=== PATIENT | male | born 1970 | race Caucasian/White ===

== ENCOUNTER 2019-08-28 07:18 | Emergency (ER) | payer OTHER, MEDICAID, SELFPAY ==
[2019-08-28 07:28] VITALS: BP 154/97; PULSE 113; RESP 15; TEMP 37.3; O2SAT 97; BMI 29.5
--- NOTE | 2019-08-28 07:44 | DI.RAD.S_ITS ---
PROCEDURE: XR ANKLE RT MIN 3V INDICATIONS: swelling and pain TECHNIQUE: 3 views of the ankle were acquired. COMPARISON: None. FINDINGS: Bones: No fractures or dislocations. Ankle mortise is normally aligned. No suspicious bony lesions. A plantar calcaneal spur is seen. The talar dome demonstrates no shweta abnormality. Soft tissues: Generalized soft tissue swelling is seen. IMPRESSION: Soft tissue swelling is seen, which is consistent the given history. No focal bony abnormality is detected. Dictated by: Marshall Pompa M.D. on 08/28/2019 at 7:45 Approved by: Marshall Pompa M.D. on 08/28/2019 at 7:46
--- NOTE | 2019-08-28 07:59 | ED_ITS ---
HPI - Extremity Injury (Lower) General Chief Complaint: Extremity Injury, Lower Stated Complaint: thinks right leg is infectedposs broken ankle Time Seen by Provider: 08/28/19 07:42 Source: patient Mode of arrival: Wheelchair Limitations: no limitations History of Present Illness HPI Narrative: Patient is a 48-year-old male who presents with right leg redness and swelling ongoing for the last 5 days. He has marked it himself the redness has certainly spread up his leg is over the past few days. He says that his ankle hurts he had an injury a number of months ago but no recent injury. He denies any recent travel he denies any fever sweats chills body aches. He is noted to be tachycardic but denies any chest pain or heart palpitations. Related Data Previous Rx's Medication Instructions Recorded cephalexin [Keflex] 500 mg PO Q6H 7 Days #0 cap 05/06/16 doxycycline hyclate 100 mg PO BID #20 cap 08/28/19 Allergies Allergy/AdvReac Type Severity Reaction Status Date / Time No Known Drug Allergies Allergy Verified 08/28/19 07:28 Review of Systems Review of Systems Narrative: GENERAL: Denies chills, fatigue, malaise, fever, sweats, travel HEENT: Denies sinus pain, ear pain, sore throat, difficulty swallowing, neck pain RESPIRATORY: Denies dyspnea, cough, wheezing, hemoptysis, sputum. CARDIOVASCULAR: Denies chest pain, palpitations, orthopnea, edema GASTROINTESTINAL: Denies nausea, vomiting, abdominal pain, diarrhea, constipation, melena. : Denies dysuria, frequency, incontinence, hematuria, urinary retention, flank pain. MUSCULOSKELETAL: Denies weakness, joint pain, or bony pain SKIN: See HPI NEUROLOGIC: Denies weakness, dizziness, headache, numbness, change in speech, confusion PSYCHIATRIC: No concerning psychosocial issues. 12 point review of systems is negative except for those stated above and HPI Patient History Medical History Patient denies significant medical history (Acute) Social History Smoking Status: Current every day smoker Smoking Status: Current every day smoker tobacco type: cigarettes Substance Use Type: does not use Exam Initial Vital Signs Initial Vital Signs: Vital Signs Temperature 99.2 F 01/05/20 07:28 Pulse Rate 113 H 08/28/19 07:28 Respiratory Rate 15 08/28/19 07:28 Blood Pressure 154/97 H 08/28/19 07:28 Pulse Oximetry 97 08/28/19 07:28 GENERAL: Well-appearing, well-nourished and in no acute distress. HEENT: Head atraumatic,EOMI, pupils reactive, face symmetric, moist mucous membranes CARDIOVASCULAR: tachycardic regular no murmurs RESPIRATORY: Breath sounds equal bilaterally, no wheezes rales or rhonchi. ABDOMEN: Soft, nontender. Normoactive bowel sounds all 4 quadrants. No gua rding or rebound. EXTREMITIES: Normal range of motion, no clubbing or edema. Neurovascularly intact NEUROLOGICAL: Alert and oriented x4.Normal gait and speech. SKIN: Right lower leg erythematous up to just below the knee swollen blanchable no sores or abscesses Course Orders Ordered: ED Orders 08/28/19 07:44 XR ankle RT min 3V Stat 08/28/19 07:45 EKG-12 Lead Stat 08/28/19 08:00 Complete Blood Count AUTO DIFF Stat Comprehensive Metabolic Panel Stat Lactate (Lactic Acid) Stat Lipase Stat Partial Thromboplastin Time Stat Procalcitonin Stat Prothrombin Time INR Stat 08/28/19 08:39 US periph venous low extrem rt Stat 08/28/19 08:41 Blood Culture Stat Discontinued Medications Ceftriaxone Sodium/Dextrose (Rocephin) 1 gm in 50 mls @ 100 mls/hr IV NOW ONE Stop: 08/28/19 09:09 Last Infusion: 08/28/19 09:22 Dose: 0 mls/hr Documented by: Admin: 08/28/19 08:50 Dose: 100 mls/hr Documented by: STEVEN Vital Signs Vital signs: Vital Signs - 8 hr 08/28/19 07:28 08/28/19 08:35 08/28/19 09:24 Temperature 99.2 F Pulse Rate 113 H 103 H 95 H Respiratory Rate 15 16 Blood Pressure 154/97 H Blood Pressure [Right Arm] 130/95 H 130/83 Pulse Oximetry 97 98 99 MDM - Extremity Injury (Lower) Lab Data Attestation: I reviewed the patient's lab results. Result diagrams: 08/28/19 08:00 08/28/19 08:00 Labs: Lab Results 08/28/19 08/28/19 08/28/19 Range/Units 08:00 08:00 08:00 WBC 8.2 (4.5-11.0) X10^3/uL RBC 4.98 (4.5-5.9) X10^6/uL Hgb 15.1 (13.5-17.5) g/dL Hct 44.3 (41-53) % MCV 88.9 (80-100) fL MCH 30.3 (26-34) PG MCHC 34.1 (30-36) % RDW 13.3 (11.6-14.8) % Plt Count 251 (150-400) X10^3/uL Neut % (Auto) 67.4 (50-75) % Lymph % (Auto) 15.6 L (25-40) % [place] % (Auto) 12.8 (3-14) % Eos % (Auto) 3.6 (2-4) % Baso % (Auto) 0.6 (0-2) % Neut # (Auto) 5500 (1496-3383) /uL Lymph # (Auto) 1300 (8094-0656) /uL [place] # (Auto) 1000 H (0-900) /uL Eos # (Auto) 300 (0-450) /uL Baso # (Auto) 0 (0-100) /uL PT 10.6 (10.1-12.7) SECONDS INR 0.9 (0.9-1.3) APTT 30 (26.4-36.2) SECONDS Sodium (137-145) mmol/L Potassium (3.4-5.1) mmol/L Chloride (98-107) mmol/L Carbon Dioxide (22-32) mmol/L BUN (9-20) mg/dL Creatinine (0.66-1.25) mg/dL Estimated GFR (>60) mL/min BUN/Creatinine Ratio (6-22) Glucose (70-100) mg/dL Lactate (0.7-2.1) mmol/L Calcium (8.4-10.2) mg/dL Total Bilirubin (0.2-1.3) mg/dL AST (17-59) IU/L ALT (<50) IU/L Alkaline Phosphatase (38-126) U/L Total Protein (6.3-8.2) g/dL Albumin (3.5-5.0) g/dL Globulin (1.7-4.1) g/dL Albumin/Globulin Ratio (1.0-2.8) Lipase (23-300) U/L Procalcitonin < 0.05 (<0.5) ng/mL 08/28/19 08/28/19 Range/Units 08:00 08:00 WBC (4.5-11.0) X10^3/uL RBC (4.5-5.9) X10^6/uL Hgb (13.5-17.5) g/dL Hct (41-53) % MCV (80-100) fL MCH (26-34) PG MCHC (30-36) % RDW (11.6-14.8) % Plt Count (150-400) X10^3/uL Neut % (Auto) (50-75) % Lymph % (Auto) (25-40) % [place] % (Auto) (3-14) % Eos % (Auto) (2-4) % Baso % (Auto) (0-2) % Neut # (Auto) (6588-8866) /uL Lymph # (Auto) (7223-7543) /uL [place] # (Auto) (0-900) /uL Eos # (Auto) (0-450) /uL Baso # (Auto) (0-100) /uL PT (10.1-12.7) SECONDS INR (0.9-1.3) APTT (26.4-36.2) SECONDS Sodium 139 (137-145) mmol/L Potassium 4.0 (3.4-5.1) mmol/L Chloride 101 (98-107) mmol/L Carbon Dioxide 31 (22-32) mmol/L BUN 19 (9-20) mg/dL Creatinine 0.80 (0.66-1.25) mg/dL Estimated GFR > 60.0 (>60) mL/min BUN/Creatinine Ratio 23.8 H (6-22) Glucose 100 (70-100) mg/dL Lactate 1.2 (0.7-2.1) mmol/L Calcium 8.6 (8.4-10.2) mg/dL Total Bilirubin 0.4 (0.2-1.3) mg/dL AST 18 (17-59) IU/L ALT 17 (<50) IU/L Alkaline Phosphatase 64 (38-126) U/L Total Protein 6.9 (6.3-8.2) g/dL Albumin 4.1 (3.5-5.0) g/dL Globulin 2.8 (1.7-4.1) g/dL Albumin/Globulin Ratio 1.5 (1.0-2.8) Lipase 53 (23-300) U/L Procalcitonin (<0.5) ng/mL Imaging Data US - DVT: Radiologist's Impression: PROCEDURE: US PERIPH VENOUS LOW EXTREM RT INDICATIONS: EDEMA, ERYTHEMA TECHNIQUE: Real-time imaging, as well as color and pulse Doppler interrogation, were performed of the lower extremity deep veins from the inguinal ligament to the popliteal fossa. COMPARISON: None. FINDINGS: The common femoral, femoral and popliteal veins are normally compressible, and free of intraluminal thrombus. Color and pulse Doppler demonstrate normal phasic intraluminal flow. There is normal augmentation response to distal compression maneuver. IMPRESSION: Negative for deep venous thrombosis. Dictated by: Marshall Pompa M.D. on 08/28/2019 at 9:15 Approved by: Marshall Pompa M.D. on 08/28/2019 at 9:16 Extremity x-ray #1: Radiologist's Impression: PROCEDURE: XR ANKLE RT MIN 3V INDICATIONS: swelling and pain TECHNIQUE: 3 views of the ankle were acquired. COMPARISON: None. FINDINGS: Bones: No fractures or dislocations. Ankle mortise is normally aligned. No suspicious bony lesions. A plantar calcaneal spur is seen. The talar dome demonstrates no shweta abnormality. Soft tissues: Generalized soft tissue swelling is seen. IMPRESSION: Soft tissue swelling is seen, which is consistent the given history. No focal bony abnormality is detected. Dictated by: Marshall Pompa M.D. on 08/28/2019 at 7:45 ECG Data Attestation: I personally reviewed and interpreted this ECG as follows: Prior ECG tracings: not available for review Interpretation: Normal sinus rhythm rate 108 p.r. interval 156 QRS [address] elevation depression or T-wave inversion MDM Narrative Medical decision making narrative: The patient actually does not appear septic. He has no fever leukocytosis, elevated lactate or procalcitonin. His Doppler and test for DVT is negative. more likely to be cellulitis he does have erythema on his right leg at this time and he is given 1 dose of IV antibiotics in a prescription. I've discussed with him warning signs and when to return to the ED. Discharge Plan Departure Patient Disposition: Home Clinical Impression: Cellulitis of leg, right Discharge Date/Time: 08/28/19 09:59 Instructions: DI for Cellulitis -- Adult Activity Restrictions/Additional Instructions: *You have been diagnosed with cellulitis *What to do: Blood work x-ray and ultrasound or or. This time what's started on antibiotic pills. If it continues to worsen in the next 2 may require admission and IV antibiotic. However it will take antibiotics at least 48-72 hours to start working *Continue to take medications as directed Doxycycline 100 mg twice a day for 10 days *Follow up with your primary care provider in 2-3 days *Return to ER if you should have increasing redness fevers sweats chills, pain or any new, worsening or concerning symptoms Prescriptions: New doxycycline hyclate 100 mg capsule 100 mg PO BID Qty: 20 RF: 0 No Action cephalexin [Keflex] 500 MG capsule 500 mg PO Q6H 7 Days Qty: 0 RF: 0 Referrals: [facility] [Outside]
[2019-08-28 08:08] LABS: Add Manual Diff / Slide Review NO; Basophils Absolute Auto 0 /uL (0-100); Basophils Percent Auto 0.6 % (0-2); Eosinophils Absolute Auto 300 /uL (0-450); Eosinophils Percent Auto 3.6 % (2-4); Hematocrit 44.3 % (41-53); Hemoglobin 15.1 g/dL (13.5-17.5); Lymphocytes Absolute Auto 1300 /uL (1100-4500); Lymphocytes Percent Auto 15.6 % (25-40); Mean Corpuscular HGB Conc 34.1 % (30-36); Mean Corpuscular Hemoglobin 30.3 PG (26-34); Mean Corpuscular Volume 88.9 fL (80-100); Monocytes Absolute Auto 1000 /uL (0-900); Monocytes Percent Auto 12.8 % (3-14); Neutrophils Absolute Auto 5500 /uL (1500-7000); Neutrophils Percent Auto 67.4 % (50-75); Platelet Count 251 X10^3/uL (150-400); Red Blood Cell Count 4.98 X10^6/uL (4.5-5.9); Red Cell Distribution Width 13.3 % (11.6-14.8); White Blood Cell Count 8.2 X10^3/uL (4.5-11.0)
[2019-08-28 08:16] LABS: INR 0.9 (0.9-1.3); Prothrombin Time 10.6 SECONDS (10.1-12.7)
[2019-08-28 08:18] LABS: PTT Partial Thromboplastin Tim 30 SECONDS (26.4-36.2)
[2019-08-28 08:20] LABS: Lactate (Lactic Acid) 1.2 mmol/L (0.7-2.1)
[2019-08-28 08:21] LABS: Alanine Aminotransferase 17 IU/L (<50); Albumin 4.1 g/dL (3.5-5.0); Albumin Globulin Ratio 1.5 (1.0-2.8); Alkaline Phosphatase 64 U/L (38-126); Aspartate Aminotransferase 18 IU/L (17-59); BUN Creatinine Ratio 23.8 (6-22); Bilirubin Total 0.4 mg/dL (0.2-1.3); Blood Urea Nitrogen 19 mg/dL (9-20); Calcium 8.6 mg/dL (8.4-10.2); Carbon Dioxide 31 mmol/L (22-32); Chloride 101 mmol/L (98-107); Estimated Glomerular Filt Rate > 60.0 mL/min (>60); Globulin 2.8 g/dL (1.7-4.1); Glucose 100 mg/dL (70-100); HEMOLYSIS < 15 (0-50); Lipase 53 U/L (23-300); Sodium 139 mmol/L (137-145); Total Protein 6.9 g/dL (6.3-8.2)
[2019-08-28 08:35] VITALS: BP 130/95; PULSE 103; O2SAT 98
[2019-08-28 08:36] LABS: Procalcitonin < 0.05 ng/mL (<0.5)
--- NOTE | 2019-08-28 08:39 | DI.US.S_ITS ---
PROCEDURE: US PERIPH VENOUS LOW EXTREM RT INDICATIONS: EDEMA, ERYTHEMA TECHNIQUE: Real-time imaging, as well as color and pulse Doppler interrogation, were performed of the lower extremity deep veins from the inguinal ligament to the popliteal fossa. COMPARISON: None. FINDINGS: The common femoral, femoral and popliteal veins are normally compressible, and free of intraluminal thrombus. Color and pulse Doppler demonstrate normal phasic intraluminal flow. There is normal augmentation response to distal compression maneuver. IMPRESSION: Negative for deep venous thrombosis. Dictated by: Marshall Pompa M.D. on 08/28/2019 at 9:15 Approved by: Marshall Pompa M.D. on 08/28/2019 at 9:16
[2019-08-28] MEDS: CEFTRIAXONE 1 GM/50 ML FROZ.PIGGY IV (08:50)
[2019-08-28 09:24] VITALS: BP 130/83; PULSE 95; RESP 16; O2SAT 99
== END 2019-08-28 09:59 | disposition home or self-care (01) ==
PROVIDERS: Emergency Provider Emergency Medicine
DX: L03.115 Cellulitis of right lower limb (principal); R00.0 Tachycardia, unspecified
CPT/HCPCS: 36415; 73610; 80053; 83605; 83690; 84145; 85025; 85610; 85730; 87040; 93005; 93971; 96365; 99284; 99285

== ENCOUNTER 2021-09-27 01:30 | Observation (INO) | payer OTHER, MEDICAID, SELFPAY ==
[2021-09-27] VITALS (38 sets, daily range): BP systolic 114–167; BP diastolic 74–103; PULSE 104–128; RESP 13–25; TEMP 36.4–37.1; O2SAT 92–99; BMI 30.3
--- NOTE | 2021-09-27 01:57 | ED_ITS ---
HPI - SOB/Dyspnea General Chief Complaint: Shortness of Breath/Dyspnea Stated Complaint: heart issues Time Seen by Provider: 09/27/21 01:57 History of Present Illness HPI Narrative: Patient is a 51-year-old male with 43 pack year history of smoking he does not go to doctors presenting with 2 months of increasing shortness of breath. He has noticed increased shortness of breath with exertion and at rest. He has peripheral edema in lower extremities and abdomen. He has shortness of breath at rest as well. He denies fever chills or chest pain. He has also noted that his heart rate is quite fast. He has taken his blood pressure heart rate throughout the day to day. Heart rate is always above 100 and he feels palpitations. He has had previously his heart rate was never that high. Related Data Previous Rx's Medication Instructions Recorded cephalexin 500 mg capsule (Keflex) 500 mg PO Q6H 7 Days #0 cap 05/06/16 doxycycline hyclate 100 mg capsule 100 mg PO BID #20 cap 08/28/19 Allergies Allergy/AdvReac Type Severity Reaction Status Date / Time No Known Drug Allergies Allergy Verified 08/28/19 07:28 Review of Systems Review of Systems Narrative: GENERAL: Denies chills, fatigue, malaise, fever, sweats, travel HEENT: Denies sinus pain, ear pain, sore throat, difficulty swallowing, neck pain RESPIRATORY: See HPI CARDIOVASCULAR: Denies chest pain, palpitations, orthopnea, edema GASTROINTESTINAL: Denies nausea, vomiting, abdominal pain, diarrhea, constipation, melena. : Denies dysuria, frequency, incontinence, hematuria, urinary retention, flank pain. MUSCULOSKELETAL: Denies weakness, joint pain, or bony pain SKIN: No rash, no erythema, no pruritus NEUROLOGIC: Denies weakness, dizziness, headache, numbness, change in speech, confusion PSYCHIATRIC: No concerning psychosocial issues. 12 point review of systems is negative except for those stated above and HPI Patient History Medical History (Updated 09/27/21 @ 04:04 by Lucia Cobb DO) Patient denies significant medical history Social History Smoking Status: Current every day smoker Smoking Status: Current every day smoker tobacco type: cigarettes Substance Use Type: does not use Exam Initial Vital Signs Initial Vital Signs: Vital Signs Temperature 98.6 F 09/27/21 01:47 Pulse Rate 128 H 09/27/21 01:47 Respiratory Rate 20 09/27/21 01:47 Blood Pressure 138/103 H 09/27/21 01:47 Pulse Oximetry 96 09/27/21 01:47 GENERAL: Alert 51-year-old male slightly diaphoretic mild conversational tachypnea HEENT: Head atraumatic,EOMI, pupils reactive, face symmetric, moist mucous membranes CARDIOVASCULAR: Tachycardic irregular RESPIRATORY: Coarse breath sounds bilaterally conversational dyspnea ABDOMEN: Soft, nontender. Mild distention. Normoactive bowel sounds all 4 quadrants. No guarding or rebound. : No CVA tenderness EXTREMITIES: Normal range of motion, no clubbing.+3 pitting edema both extremities Neurovascularly intact NEUROLOGICAL: Alert and oriented x4.Normal gait and speech SKIN: Warm, dry, no laceration, no petechiae, no rashes or lesions. Course Orders Ordered: ED Orders 09/27/21 EKG-12 Lead Routine 09/27/21 01:42 COVID19 -Nasal swab/Pre-Proc Stat 09/27/21 01:45 Complete Blood Count AUTO DIFF Stat Comprehensive Metabolic Panel Stat D Dimer Stat Lactate (Lactic Acid) Stat Magnesium Stat NT-proBNP (BNP-Adult 18+) Stat Partial Thromboplastin Time Stat Prothrombin Time INR Stat Troponin & CK Cardiac Panel Stat 09/27/21 01:57 Consult to Respiratory Therapy Evaluate & Treat 09/27/21 01:58 XR chest 1V Stat 09/27/21 02:19 CT angio chest PE protocol Stat Acetaminophen (Acetaminophen 325 Mg Tablet) 650 mg PO Q6HR PRN PRN Reason: Fever/Mild Pain (1-3) Aspirin (Aspirin Ec 81 Mg Tablet) 81 mg PO DAILY PREMA Atorvastatin Calcium (Atorvastatin 20 Mg Tablet) 40 mg PO BEDTIME PREMA Enoxaparin Sodium (Enoxaparin 40 Mg/0.4 Ml Syringe) 40 mg SUBCUT DAILY PREMA Furosemide (Furosemide 40 Mg/4 Ml Vial) 40 mg IV Q12HR PREMA Ondansetron HCl (Ondansetron 4 Mg/2 Ml Inj) 4 mg IV Q8HR PRN PRN Reason: Nausea And Vomiting Discontinued Medications Furosemide (Furosemide 40 Mg/4 Ml Vial) 20 mg IV NOW ONE Stop: 09/27/21 03:44 Last Admin: 09/27/21 04:11 Dose: 20 mg Documented by: MANUEL Vital Signs Vital signs: Vital Signs - 8 hr 09/27/21 01:47 09/27/21 02:00 09/27/21 02:37 Temperature 98.6 F Pulse Rate 128 H 119 H 117 H Respiratory Rate 20 25 H Blood Pressure 138/103 H Pulse Oximetry 96 99 95 09/27/21 02:38 09/27/21 03:00 09/27/21 03:30 Temperature Pulse Rate 117 H 114 H 110 H Respiratory Rate 21 20 Blood Pressure 167/99 H 159/98 H 134/80 Pulse Oximetry 94 94 95 09/27/21 04:02 Temperature Pulse Rate 122 H Respiratory Rate Blood Pressure Pulse Oximetry MDM - SOB/Dyspnea Lab Data Result diagrams: 09/27/21 01:45 09/27/21 01:45 Labs: Lab Results 09/27/21 09/27/21 09/27/21 Range/Units 01:42 01:45 01:45 WBC 9.2 (4.5-11.0) X10^3/uL RBC 5.16 (4.5-5.9) X10^6/uL Hgb 15.3 (13.5-17.5) g/dL Hct 45.9 (41-53) % MCV 89.0 (80-100) fL MCH 29.6 (26-34) PG MCHC 33.2 (30-36) % RDW 14.3 (11.6-14.8) % Plt Count 367 (150-400) X10^3/uL Neut % (Auto) 58.1 (50-75) % Lymph % (Auto) 27.1 (25-40) % [place] % (Auto) 11.8 (3-14) % Eos % (Auto) 2.4 (2-4) % Baso % (Auto) 0.6 (0-2) % Neut # (Auto) 5300 (6043-2972) /uL Lymph # (Auto) 2500 (9269-8163) /uL [place] # (Auto) 1100 H (0-900) /uL Eos # (Auto) 200 (0-450) /uL Baso # (Auto) 100 (0-100) /uL PT 11.7 (10.1-12.7) SECONDS INR 1.0 (0.9-1.3) APTT 29 (26.4-36.2) SECONDS D-Dimer 526 H (<230) ng/mL Sodium (137-145) mmol/L Potassium (3.4-5.1) mmol/L Chloride (98-107) mmol/L Carbon Dioxide (22-32) mmol/L BUN (9-20) mg/dL Creatinine (0.66-1.25) mg/dL Estimated GFR (>60) mL/min BUN/Creatinine Ratio (6-22) Glucose (70-100) mg/dL Lactate (0.7-2.1) mmol/L Calcium (8.4-10.2) mg/dL Magnesium (1.6-2.3) mg/dL Total Bilirubin (0.2-1.3) mg/dL AST (17-59) IU/L ALT (<50) IU/L Alkaline Phosphatase (38-126) U/L Total Creatine Kinase (55-170) U/L CK-MB (CK-2) CK-MB (CK-2) Rel Index Troponin I (0.01-0.034) ng/mL NT-Pro-B Natriuret Pep (<125) pg/mL Total Protein (6.3-8.2) g/dL Albumin (3.5-5.0) g/dL Globulin (1.7-4.1) g/dL Albumin/Globulin Ratio (1.0-2.8) SARS-CoV-2 (PCR) Negative (Negative) 09/27/21 09/27/21 09/27/21 Range/Units 01:45 01:45 01:45 WBC (4.5-11.0) X10^3/uL RBC (4.5-5.9) X10^6/uL Hgb (13.5-17.5) g/dL Hct (41-53) % MCV (80-100) fL MCH (26-34) PG MCHC (30-36) % RDW (11.6-14.8) % Plt Count (150-400) X10^3/uL Neut % (Auto) (50-75) % Lymph % (Auto) (25-40) % [place] % (Auto) (3-14) % Eos % (Auto) (2-4) % Baso % (Auto) (0-2) % Neut # (Auto) (5168-8901) /uL Lymph # (Auto) (0188-3636) /uL [place] # (Auto) (0-900) /uL Eos # (Auto) (0-450) /uL Baso # (Auto) (0-100) /uL PT (10.1-12.7) SECONDS INR (0.9-1.3) APTT (26.4-36.2) SECONDS D-Dimer (<230) ng/mL Sodium 142 (137-145) mmol/L Potassium 4.6 (3.4-5.1) mmol/L Chloride 105 (98-107) mmol/L Carbon Dioxide 32 (22-32) mmol/L BUN 21 H (9-20) mg/dL Creatinine 1.14 (0.66-1.25) mg/dL Estimated GFR > 60.0 (>60) mL/min BUN/Creatinine Ratio 18.4 (6-22) Glucose 131 H (70-100) mg/dL Lactate 1.5 (0.7-2.1) mmol/L Calcium 9.4 (8.4-10.2) mg/dL Magnesium 2.0 (1.6-2.3) mg/dL Total Bilirubin 0.8 (0.2-1.3) mg/dL AST 36 (17-59) IU/L ALT 49 (<50) IU/L Alkaline Phosphatase 55 (38-126) U/L Total Creatine Kinase 79 (55-170) U/L CK-MB (CK-2) TNP CK-MB (CK-2) Rel Index TNP Troponin I 0.023 (0.01-0.034) ng/mL NT-Pro-B Natriuret Pep 4700 H (<125) pg/mL Total Protein 7.1 (6.3-8.2) g/dL Albumin 4.2 (3.5-5.0) g/dL Globulin 2.9 (1.7-4.1) g/dL Albumin/Globulin Ratio 1.4 (1.0-2.8) SARS-CoV-2 (PCR) (Negative) Imaging Data Chest x-ray: Radiologist's Impression: PROCEDURE:? XR CHEST 1V ? INDICATIONS:? short of breath ? TECHNIQUE:? One view of the chest was acquired.? ? COMPARISON:? None. ? FINDINGS:? ? Surgical changes and devices:? None.? ? Lungs and pleura:? Linear bibasilar opacities are present.? In addition, there is blunting of the costophrenic angles bilaterally, as well as faint bibasilar hazy opacities. ? Mediastinum:? Mediastinal contours appear normal.? Heart size is enlarged. ? Bones and chest wall:? No suspicious bony lesions.? Overlying soft tissues a ppear unremarkable.? ? IMPRESSION:? ? Blunting of the costophrenic angle suggestive of minimal effusions.? In addition, there is increased hazy opacities within the bases which could be reflective of the effusions versus developing underlying areas of atelectasis and/or pneumonia. ? Linear bibasilar opacities suggestive of atelectasis. ? ? Dictated by: Evelyn Banuelos M.D. on 09/27/2021 at 2:01 ? ? CT scan - chest: Radiologist's Impression: Preliminary report: Congestive heart failure with small pleural effusions and mild pulmonary edema superimposed chronic interstitial disease. Slight atypical and pneumonia cannot be excluded. Clinical correlation and follow-up suggested. 2. Partially imaged pericholecystic haziness. 3. No PE seen ECG Data Interpretation: Sinus tachycardia rate 123 MN interval 168 QRS [address] changes S her to previous EKG MDM Narrative Medical decision making narrative: The patient has been having increasing shortness of breath her last 2 months it has gotten significantly worse. He has orthopnea peripheral edema a BNP of 4700 and likely new onset congestive heart failure. CT does not show any pulmonary embolism. He has no outpatient follow-up. He is currently not requiring oxygen but remains tachycardic with conversational dyspnea. He is given Lasix here in the emergency department. Dr. German, in ED to see evaluate patient and half late accepts. Discharge Plan Departure Patient Disposition: Admitted as Observation Clinical Impression: Congestive heart failure Admit Date/Time: 09/27/21 04:08 Admit Provider: Segundo German
--- NOTE | 2021-09-27 01:58 | DI.RAD.S_ITS ---
PROCEDURE: XR CHEST 1V INDICATIONS: short of breath TECHNIQUE: One view of the chest was acquired. COMPARISON: None. FINDINGS: Surgical changes and devices: None. Lungs and pleura: Linear bibasilar opacities are present. In addition, there is blunting of the costophrenic angles bilaterally, as well as faint bibasilar hazy opacities. Mediastinum: Mediastinal contours appear normal. Heart size is enlarged. Bones and chest wall: No suspicious bony lesions. Overlying soft tissues appear unremarkable. IMPRESSION: Blunting of the costophrenic angle suggestive of minimal effusions. In addition, there is increased hazy opacities within the bases which could be reflective of the effusions versus developing underlying areas of atelectasis and/or pneumonia. Linear bibasilar opacities suggestive of atelectasis. Dictated by: Evelyn Banuelos M.D. on 09/27/2021 at 2:01 Approved by: Evelyn Banuelos M.D. on 09/27/2021 at 2:02
[2021-09-27 02:09] LABS: Prothrombin Time 11.7 SECONDS (10.1-12.7)
[2021-09-27 02:10] LABS: Lactate (Lactic Acid) 1.5 mmol/L (0.7-2.1)
[2021-09-27 02:11] LABS: Alanine Aminotransferase 49 IU/L (<50); Albumin 4.2 g/dL (3.5-5.0); Albumin Globulin Ratio 1.4 (1.0-2.8); Alkaline Phosphatase 55 U/L (38-126); Aspartate Aminotransferase 36 IU/L (17-59); BUN Creatinine Ratio 18.4 (6-22); Bilirubin Total 0.8 mg/dL (0.2-1.3); Blood Urea Nitrogen 21 mg/dL (9-20); Calcium 9.4 mg/dL (8.4-10.2); Carbon Dioxide 32 mmol/L (22-32); Chloride 105 mmol/L (98-107); Creatine Kinase 79 U/L (55-170); Estimated Glomerular Filt Rate > 60.0 mL/min (>60); Globulin 2.9 g/dL (1.7-4.1); Glucose 131 mg/dL (70-100); HEMOLYSIS 29 (0-50); Potassium 4.6 mmol/L (3.4-5.1); Sodium 142 mmol/L (137-145); Total Protein 7.1 g/dL (6.3-8.2)
[2021-09-27 02:12] LABS: D Dimer 526 ng/mL (<230); PTT Partial Thromboplastin Tim 29 SECONDS (26.4-36.2)
[2021-09-27 02:14] LABS: Add Manual Diff / Slide Review NO; Basophils Absolute Auto 100 /uL (0-100); Basophils Percent Auto 0.6 % (0-2); Eosinophils Absolute Auto 200 /uL (0-450); Eosinophils Percent Auto 2.4 % (2-4); Hematocrit 45.9 % (41-53); Hemoglobin 15.3 g/dL (13.5-17.5); Lymphocytes Absolute Auto 2500 /uL (1100-4500); Lymphocytes Percent Auto 27.1 % (25-40); Mean Corpuscular HGB Conc 33.2 % (30-36); Mean Corpuscular Hemoglobin 29.6 PG (26-34); Monocytes Absolute Auto 1100 /uL (0-900); Monocytes Percent Auto 11.8 % (3-14); Neutrophils Absolute Auto 5300 /uL (1500-7000); Neutrophils Percent Auto 58.1 % (50-75); Platelet Count 367 X10^3/uL (150-400); Red Blood Cell Count 5.16 X10^6/uL (4.5-5.9); Red Cell Distribution Width 14.3 % (11.6-14.8); White Blood Cell Count 9.2 X10^3/uL (4.5-11.0)
--- NOTE | 2021-09-27 02:19 | DI.CT.S_ITS ---
PROCEDURE: CT ANGIO CHEST PE PROTOCOL INDICATIONS: short of breath TECHNIQUE: After the administration of intravenous contrast, 2 mm thick sections acquired from the pulmonary apices to the posterior costophrenic angles. 3-dimensional maximum intensity projection (MIP) coronal and sagittal reformats were then acquired through the thorax. For radiation dose reduction, the following was used: automated exposure control, adjustment of mA and/or kV according to patient size. COMPARISON: None. FINDINGS: Image quality: Excellent. Pulmonary arteries: Pulmonary arteries are normal in size, and demonstrate no intraluminal filling defects to suggest central pulmonary embolism. Lungs and pleura: No pneumothorax. Small bilateral pleural effusions with associated compressive atelectasis. Bilateral perihilar airway thickening most pronounced in the lower lobes. Smooth septal thickening throughout. Mild scattered ground-glass opacities predominantly peripherally and at the lung bases. A few ground-glass nodules are seen peripherally in the upper lobes. Linear consolidations along the lingula and medial right middle lobe favored to represent atelectasis. Central and peripheral airways are patent. Mediastinum: Heart size is normal, with very small pericardial effusion. Multiple prominent mediastinal and hilar lymph nodes which are more notable for number rather than size are favored to represent reactive adenopathy. Thoracic aorta is normal in caliber and enhancement. Esophagus is normal in caliber, with a small hiatal hernia. Bones and chest wall: No suspicious bony lesions. Ribs and thoracic spine appear intact throughout. Thyroid gland is unremarkable. No axillary or supraclavicular adenopathy. Abdomen: Possible pericholecystic stranding. Remainder of the visualized upper abdominal solid organs appear normal in the early arterial phase of enhancement. IMPRESSION: 1. No acute pulmonary emboli. 2. Findings compatible with pulmonary edema, possibly superimposed on chronic interstitial disease. Concurrent atypical pneumonia not excluded. Follow-up imaging recommended. 3. Partially imaged possible pericholecystic stranding which may represent acute cholecystitis. Recommend clinical correlation. Further evaluation with right upper quadrant ultrasound can be considered. No significant discrepancy with the chief nursing executive radiology preliminary report. Dictated by: Matthias Lawson M.D. on 09/27/2021 at 7:31 Approved by: Matthias Lawson M.D. on 09/27/2021 at 7:39
[2021-09-27 02:22] LABS: NT-proBNP (BNP-Adult 18+) 4700 pg/mL (<125); Troponin I 0.023 ng/mL (0.01-0.034)
[2021-09-27 02:35] LABS: COVID19 -Nasal RAPID Negative (Negative)
[2021-09-27] MEDS: FUROSEMIDE 40 MG/4 ML VIAL 20 MG IV (04:11)
--- NOTE | 2021-09-27 04:30 | DI.ECHO.S_ITS ---
[facility]---------+ [facility] +---------+ : : [address] : : : : [id number] : : : : Phone: [phone]+ Echocardiogram Report + + :Name: TIFFANIE RUST Study Date: 09/27/2021 Height: 73 in : :[facility] ReadingLocation: Weight: 230 lb : : Gender: Male BSA: 2.3 m2 : :: 1970 Age: 51 yrs BP: 153/98 mmHg: :Reason For Study: Congestive Heart Failure : : Performed By: Fausto Pepe : :Referring: DONNA MCCRAY : + + Interpretation Summary Left ventricular size is at the upper limits of normal. The ejection fraction is estimated to be 15-20%. There is severe global hypokinesis of the left ventricle. There is no thrombus. The right ventricle is mildly dilated. Right ventricular systolic function is mildly reduced. There is mild to moderate mitral regurgitation. The right ventricular systolic pressure is estimated to be at least 56 mmHg based on an estimated right atrial pressure of 15 mm Hg. Procedure: A two-dimensional transthoracic echocardiogram with color flow and Doppler was performed. The apical views were difficult to obtain and are suboptimal in quality. There is no prior echocardiogram noted for this patient. A contrast injection of Definity was performed to improve assessment of LV function. The patient was in sinus tachycardia with heart rates between 110 - 117 bpm during the exam. Left Ventricle: Left ventricular size is at the upper limits of normal. There is no thrombus. The ejection fraction is estimated to be 15-20%. There is severe global hypokinesis of the left ventricle. Diastolic function could not be accurately assessed due to tachycardia. Right Ventricle: The right ventricle is mildly dilated. Right ventricular systolic function is mildly reduced. Atria: The left atrium is severely dilated. The right atrium is moderately dilated. There is no Doppler evidence for an interatrial shunt. Mitral Valve: The mitral valve is normal. There is mild to moderate mitral regurgitation. Aortic Valve: The aortic valve is trileaflet. The aortic valve opens well. The aortic valve is mildly calcified. There is trace aortic regurgitation. Tricuspid Valve: The tricuspid valve is normal. There is mild tricuspid regurgitation. The right ventricular systolic pressure is estimated to be at least 56 mmHg based on an estimated right atrial pressure of 15 mm Hg. Pulmonic Valve: The pulmonic valve is not well seen, but is grossly normal. There is a trace or physiologic amount of pulmonic regurgitation. Great Vessels: The aortic root is normal size. The ascending aorta is normal in size. The aortic arch is normal in size. The IVC is dilated (diameter is greater than 2.1 cm) and it collapses less than 50% with a sniff. This suggests a high right atrial pressure of 15 mm Hg. Pericardium/ Pleura There is no pericardial effusion. There is an anterior echo-free space consistent with a fat pad. There is no pleural effusion. MMode/2D Measurements & Calculations LVIDd: 5.6 cm LVOT diam: 2.0 cm LVIDs: 5.1 cm Ao root diam: 3.1 cm FS: 10.1 % asc Aorta Diam: 3.1 cm IVSd: 0.73 cm Ao Arch Diam (Prox Trans): 3.1 cm LVPWd: 1.2 cm LV kauffman. diameter/BSA (cm/m^2): 2.5 LV sys. diameter/BSA (cm/m^2): 2.2 LA A2 area: 31.9 cm2 RA long axis: 5.5 cm LA A4 area: 29.7 cm2 RA area: 23.0 cm2 LA length (vol): 6.4 cm RA vol: 82.3 ml LA vol: 125.8 ml RA : 36.0 ml/m2 LA vol index: 55.1 ml/m2 TAPSE: 1.4 cm Doppler Measurements & Calculations Ao V2 max: 102.0 cm/sec LVOT Max Heriberto: 72.6 cm/sec Ao V2 mean: 78.2 cm/sec LV V1 max P.1 mmHg Ao max P.2 mmHg LV V1 VTI: 9.8 cm Ao mean P.6 mmHg NESTOR(I,D): 2.0 cm2 Ao V2 VTI: 15.8 cm NESTOR(V,D): 2.3 cm2 sev ratio: 0.62 NESTOR indexed to BSA (cm^2/m^2): 0.90 MV E max heriberto: 123.4 cm/sec TR max heriberto: 321.7 cm/sec Med Peak E' Heriberto: 10.8 cm/sec TR max P.4 mmHg E/E' med: 11.4 Lat Peak E' Heriberto: 10.3 cm/sec E/E' lat: 12.0 E/e' average: 11.7 SV(LVOT): 32.2 ml Reading Physician:11:53 AM
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
[2021-09-27 07:56] LABS: Troponin I 0.028 ng/mL (0.01-0.034)
[2021-09-27] MEDS: FUROSEMIDE 40 MG/4 ML VIAL IV ×2 (08:50→12:12)
[2021-09-27] MEDS: ENOXAPARIN 40 MG/0.4 ML SYRINGE SUBCUT (08:50)
[2021-09-27] MEDS: ASPIRIN EC 81 MG TABLET PO (08:51)
[2021-09-27 14:05] LABS: BUN Creatinine Ratio 23.7 (6-22); Blood Urea Nitrogen 23 mg/dL (9-20); Calcium 9.3 mg/dL (8.4-10.2); Carbon Dioxide 34 mmol/L (22-32); Chloride 101 mmol/L (98-107); Estimated Glomerular Filt Rate > 60.0 mL/min (>60); Glucose 118 mg/dL (70-100); HEMOLYSIS 19 (0-50); Magnesium 1.9 mg/dL (1.6-2.3); Potassium 4.1 mmol/L (3.4-5.1); Sodium 142 mmol/L (137-145)
[2021-09-27 14:17] LABS: Troponin I 0.024 ng/mL (0.01-0.034)
--- NOTE | 2021-09-27 18:10 | PC.NURSE ---
Assess- Patient is alert and oriented x3, he denies any chest pain and is on Tele #12. Patient admitted for chf exacerbation, he had an echo done and his EF is 15-20%. Sleeping soundly now and denies pain.
[2021-09-27] MEDS: ATORVASTATIN 20 MG TABLET 40 MG PO (21:00)
[2021-09-28] MEDS: FUROSEMIDE 40 MG/4 ML VIAL IV ×2 (00:07→12:36)
[2021-09-28 01:03] VITALS: PULSE 104; RESP 16; O2SAT 92
[2021-09-28 05:28] VITALS: BP 116/83; PULSE 109; RESP 17; TEMP 36.1; O2SAT 97
[2021-09-28 06:57] LABS: BUN Creatinine Ratio 22.3 (6-22); Blood Urea Nitrogen 21 mg/dL (9-20); Chloride 100 mmol/L (98-107); Estimated Glomerular Filt Rate > 60.0 mL/min (>60); Glucose 108 mg/dL (70-100); HEMOLYSIS 22 (0-50); Potassium 4.3 mmol/L (3.4-5.1); Sodium 143 mmol/L (137-145)
[2021-09-28 07:06] LABS: Carbon Dioxide 40 mmol/L (22-32)
[2021-09-28 07:15] VITALS: O2SAT 96
--- NOTE | 2021-09-28 07:29 | P.PN_ITS ---
Exam Vital Signs (past 8 hours): - 09/28/21 01:03 09/28/21 05:28 Temperature 96.9 F L Pulse Rate 104 H 109 H Respiratory Rate 16 17 Blood Pressure 116/83 Pulse Oximetry 92 97 Oxygen Delivery Method Room Air Objective Labs Result Diagrams: 09/27/21 01:45 09/28/21 06:12 Labs: Laboratory Results - last 24 hr 09/27/21 09/27/21 09/27/21 07:20 13:39 13:39 Sodium 142 Potassium 4.1 Chloride 101 Carbon Dioxide 34 H BUN 23 H Creatinine 0.97 Estimated GFR > 60.0 BUN/Creatinine Ratio 23.7 H Glucose 118 H Calcium 9.3 Magnesium 1.9 Troponin I 0.028 0.024 09/28/21 06:12 Sodium 143 Potassium 4.3 Chloride 100 Carbon Dioxide 40 H* BUN 21 H Creatinine 0.94 Estimated GFR > 60.0 BUN/Creatinine Ratio 22.3 H Glucose 108 H Calcium 9.0 Magnesium 2.0 Troponin I [facility] Medical History (Updated 09/27/21 @ 04:04 by Lucia Cobb DO) Patient denies significant medical history Social History household members: other Smoking Status: Current every day smoker alcohol intake: never Assessment & Plan Assessment & Plan narrative: Mr. Roman is a 51M current smoker who presents with progressive dyspnea found to have acute CHF exacerbation. 1. Acute CHF exacerbation with acute pulmonary edema -concern possibly secondary to ischemic disease as patient has long history of smoking -trend troponins -ordered ECHO -fluid restriction to 2L -low sodium diet -ordered for 40mg IV lasix BID, goal net negative 2-3L daily -weight on admission 104 kg -ordered for aspirin/statin 2. Tobacco abuse -have encourage smoking cessation -may need nicotine patch CODE: Full Proxy: cristy Martínez Time Spent With Patient Critical Care time: I spent a total of [] minutes of critical care time on this patient's care today; this time is exclusive of procedural time. Quality VTE Deep Vein Thrombosis/Pulmonary Embolism Present on Admission: No
[2021-09-28] MEDS: ASPIRIN EC 81 MG TABLET PO (08:59)
[2021-09-28] MEDS: ENOXAPARIN 40 MG/0.4 ML SYRINGE SUBCUT (08:59)
[2021-09-28 09:30] VITALS: BP 129/95; PULSE 110; RESP 18; TEMP 36; O2SAT 94
--- NOTE | 2021-09-28 11:04 | PC.NURSE ---
Addendum entered by Mandi Mane R.N. 09/28/21 17:55: Patient just discharged to [facility] in [place]. Report called to rosalinda. He left at 530 Original Note: Assess- Patient denies chest pain. He is still getting his lasix iv and has good urine out put. in room and supportive.
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
--- NOTE | 2021-09-28 15:11 | CM.IDA ---
Initial DCP Assessment Note Pt is a 51 yo male, resident of [place], arrives w/ heart issues admitted observation for acute CHF exacerbation w/acute pulmonary edema. PCP: None Payer: Nathan/BRIEN Reviewed chart, pt discussed in multidisciplinary rounds this morning. Echo results indicate EF of 15-20%. 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 Patient requests list of [facility] Providers so provided him list w/contact information. Strongly encouraged patient to call clinic(s) of choice Thursday to secure appt for establishing w/PCP patient agreed Plan: DC expected home today w/girlfriend Krys as support, close outpatient f/u recommended SABINO Larson Discharge Planning/Care Management CM Discharge Assessment Start: 09/28/21 15:09 Freq: Status: Active Protocol: Document 09/28/21 15:09 AV (Rec: 09/28/21 15:11 [id number]) Discharge Planning Assessment Assigned Medical Transcriber SABINO Koroma DPOA/Assigned Designee Name Krys Miller, girlfriend Contact Information Luciana Valdes, friend (ex girlfriend) [phone] Advance Directives? No History Provided By Patient,Medical Record Prior Living Arrangements House Household Members other Type of transporation used prior to Drives own vehicle admit Independent with ADL's Yes Is patient alert and oriented? Yes Barriers to Discharge No Discharge Plan Home Transportation Arrangement Friend Referrals Initiated None needed
== END 2021-09-28 17:30 | disposition short-term general hospital (02) ==
LOC: ED 04:04 → AC 04:09
PROVIDERS: Admitting Provider Internal Medicine; Emergency Provider Emergency Medicine; Referring Provider Emergency Medicine; Visit Provider Internal Medicine
DX: I50.1 Left ventricular failure, unspecified (principal); R06.02 Shortness of breath; F17.210 Nicotine dependence, cigarettes, uncomplicated; Z20.822 Contact with and (suspected) exposure to COVID-19
CPT/HCPCS: 36415; 71045; 71275; 80048; 80053; 82550; 83605; 83735; 83880; 84484; 85025; 85379; 85610; 85730; 87635; 93005; 93306; 94760; 96372; 96374; 96376; 99284; C9803; G0378; J1650; J1940; Q9957; Q9967